=== PATIENT | male | born 1950 | race Hispanic/Latino ===

== ENCOUNTER 2017-01-08 13:46 | Emergency (ER) | payer MEDICARE, OTHER ==
[~2017-01-08] VITALS: Ht 182.9 cm; Wt 85.0 kg
[~2017-01-08 13:46] MED LIST: ALPRAZOLAM PO; AMOXICILLIN500 MG OR; AUGMENTIN500TAB PO; COMPAZINE10 MG OR; GABAPENTIN300 MG PO; LEVEMIR FLEXPEN SC; LEVEMIR1000 UNITS SC; LIPITOR40 M1 PO; LISINOPRIL10 MG PO; LORTAB 5/3255 MG PO; LORTAB 7.5 PO; LYRICA150 MG OR; MELOXICAM7.5 MG PO; METFORMIN500 M1 OR; METHADONE10 MG PO; METHADONE5 M1 OR; NAPROSYN500 MG PO; NEURONTIN100 MG PO; NO; NOVOLOG FLEXPEN SC; NYSTATIN TOP; OXYCODONE5 MG OR; OXYCODONE5 MG PO; PENICILLIN V P500 MG PO; PERCOCET 10/31 COMBO PO; PREPARATIO H RE; PRILOSEC40 MG PO; TORADOL OR; TRAMADOL HCL50 MG OR; ULTRAM50 M1 PO; ULTRAM50 MG OR; UNKNOWN BP PILL; XANAX0.5 MG PO; ZOFRAN ODT8 MG OR
[2017-01-08] MEDS ORDERED: BACTRIM DS1 TAB PO (15:07)
[2017-01-08] MEDS ORDERED: LORTAB 5-325 MG1 TAB PO (15:07)
[2017-01-08 15:11] VITALS: BP 139/84
== END 2017-01-08 15:17 | disposition home or self-care (01) ==
LOC: ED 13:46
PROC: 0H9QXZZ Drainage of Finger Nail, External Approach (ICD-10-PCS; principal; 2017-01-08)
DX: L03.012 Cellulitis of left finger (principal)

== ENCOUNTER 2017-01-09 08:51 | Emergency (ER) | payer MEDICARE, OTHER ==
[~2017-01-09] VITALS: Ht 182.9 cm; Wt 90.0 kg
[~2017-01-09 08:51] MED LIST changes: +BACTRIM DS1 TAB PO; +LORTAB 5-325 MG1 TAB PO
[2017-01-09 09:45] VITALS: BP 148/86
== END 2017-01-09 09:45 | disposition home or self-care (01) ==
LOC: ED 08:51
DX: L02.511 Cutaneous abscess of right hand (principal); M19.90 Unspecified osteoarthritis, unspecified site; C95.90 Leukemia, unspecified not having achieved remission; F10.10 Alcohol abuse, uncomplicated; E11.9 Type 2 diabetes mellitus without complications; Z85.038 Personal history of other malignant neoplasm of large intestine; Z85.05 Personal history of malignant neoplasm of liver

== ENCOUNTER 2017-01-11 08:57 | Emergency (ER) | payer MEDICARE, OTHER ==
[~2017-01-11] VITALS: Ht 182.9 cm; Wt 80.0 kg
[2017-01-11 09:05] VITALS: BP 133/72
== END 2017-01-11 09:13 | disposition home or self-care (01) ==
LOC: ED 08:57
DX: Z48.01 Encounter for change or removal of surgical wound dressing (principal)

== ENCOUNTER 2017-07-18 14:15 | Emergency (ER) | payer MEDICARE, OTHER ==
[~2017-07-18] VITALS: Ht 182.9 cm; Wt 88.0 kg
[2017-07-18] MEDS ORDERED: CIPROFLOXACN750 MG PO (14:41)
[2017-07-18] MEDS ORDERED: TRAMADOL HYDROC50 MG PO (14:41)
[2017-07-18 15:07] VITALS: BP 130/70
== END 2017-07-18 15:17 | disposition home or self-care (01) ==
LOC: ED 14:15
DX: S91.332A Puncture wound without foreign body, left foot, initial encounter (principal); E11.9 Type 2 diabetes mellitus without complications; M19.90 Unspecified osteoarthritis, unspecified site; W22.8XXA Striking against or struck by other objects, initial encounter; Y92.009 Unspecified place in unspecified non-institutional (private) residence as the place of occurrence of the external cause; Z85.6 Personal history of leukemia; Z85.05 Personal history of malignant neoplasm of liver; Z85.118 Personal history of other malignant neoplasm of bronchus and lung; Z79.4 Long term (current) use of insulin

== ENCOUNTER 2017-08-24 08:55 | Emergency (ER) | payer MEDICARE, OTHER ==
[~2017-08-24] VITALS: Ht 182.9 cm; Wt 84.0 kg
[~2017-08-24 08:55] MED LIST changes: +CIPROFLOXACN750 MG PO; +TRAMADOL HYDROC50 MG PO
[2017-08-24 10:48] LABS: HEMATOCRIT 37.8 % (39.0-50.0); HEMOGLOBIN 12.6 g/dl (14.0-18.0); IMMATURE GRANULOCYTES 0.3 % (0.0-1.0); MEAN CORPUSCULAR HGB CONC 33.3 g/L CALC (32.0-36.0); NEUT# 4.31 thou/uL (1.82-7.42); RED BLOOD COUNT 3.82 mill/uL (4.70-6.10); RED CELL DISTRI WIDTH 12.7 % (11.5-15.5)
[2017-08-24] MEDS ORDERED: RANITIDINE 150150 MG PO (10:55)
[2017-08-24] MEDS ORDERED: ZOFRAN4 M1 PO (10:55)
[2017-08-24 11:08] VITALS: BP 140/80
[2017-08-24 11:13] LABS: ALBUMIN 4.4 g/dL (3.2-5.0); ALKALINE PHOSPHATASE 89 u/l (38-126); ANION GAP 17 (6-22 (CALC)); BILIRUBIN, TOTAL 0.6 mg/dL (0.0-1.4); BUN 22 mg/dL (8-23); BUN/CREATININE RATIO 21 (12-20 (CALC)); CARBON DIOXIDE 25 mmol/l (22-30); CHLORIDE 105 mmol/l (95-108); GFR > 60 ML/MIN (>=60 (CALC)); GFR FOR AFR.AMER. > 60 ML/MIN (>=60 (CALC)); GLUCOSE 116 mg/dL (82-115); LIPASE 109 u/l (23-300); POTASSIUM 4.9 mmol/l (3.5-5.1); SGOT/AST 40 u/l (19-48); SGPT/ALT 36 u/l (11-66); SODIUM 142 mmol/l (137-146); TOTAL PROTEIN 7.1 g/dL (6.3-8.2)
== END 2017-08-24 11:10 | disposition home or self-care (01) ==
LOC: ED 08:55
PROVIDERS: Family Medicine
DX: K52.9 Noninfective gastroenteritis and colitis, unspecified (principal); R11.2 Nausea with vomiting, unspecified; R10.84 Generalized abdominal pain; E11.9 Type 2 diabetes mellitus without complications; Z79.4 Long term (current) use of insulin

== ENCOUNTER 2017-10-24 09:48 | Emergency (ER) | payer MEDICARE, OTHER ==
[~2017-10-24] VITALS: Ht 182.9 cm; Wt 80.0 kg
[~2017-10-24 09:48] MED LIST changes: +RANITIDINE 150150 MG PO; +ZOFRAN4 M1 PO
[2017-10-24 10:35] LABS: INFLUENZA A NONE DETECTED (NONE DETECT); INFLUENZA B NONE DETECTED (NONE DETECT)
[2017-10-24] MEDS ORDERED: ZPAK PO (10:39)
[2017-10-24 10:48] VITALS: BP 166/88
== END 2017-10-24 10:48 | disposition home or self-care (01) ==
LOC: ED 09:48
PROVIDERS: Family Medicine
DX: J40 Bronchitis, not specified as acute or chronic (principal); M19.90 Unspecified osteoarthritis, unspecified site; E11.9 Type 2 diabetes mellitus without complications; Z85.038 Personal history of other malignant neoplasm of large intestine; Z85.05 Personal history of malignant neoplasm of liver; Z85.118 Personal history of other malignant neoplasm of bronchus and lung

== ENCOUNTER 2017-12-11 11:10 | Emergency (ER) | payer MEDICARE, OTHER ==
[~2017-12-11] VITALS: Ht 182.9 cm; Wt 84.0 kg
[~2017-12-11 11:10] MED LIST changes: +GABAPENTIN100 MG PO; -GABAPENTIN300 MG PO; +ZPAK PO
[2017-12-11] MEDS ORDERED: IBUPROFEN200 MG PO (11:32)
[2017-12-11] MEDS ORDERED: NAPROXEN DR500 MG PO (12:25)
[2017-12-11 12:34] VITALS: BP 133/90
== END 2017-12-11 12:35 | disposition home or self-care (01) ==
LOC: ED 11:10
DX: S83.411A Sprain of medial collateral ligament of right knee, initial encounter (principal); I10 Essential (primary) hypertension; E11.9 Type 2 diabetes mellitus without complications; M19.90 Unspecified osteoarthritis, unspecified site; W17.2XXA Fall into hole, initial encounter; Y93.H2 Activity, gardening and landscaping; Y92.007 Garden or yard of unspecified non-institutional (private) residence as the place of occurrence of the external cause; Z85.05 Personal history of malignant neoplasm of liver; Z85.038 Personal history of other malignant neoplasm of large intestine; Z85.118 Personal history of other malignant neoplasm of bronchus and lung

== ENCOUNTER 2018-01-07 09:34 | Emergency (ER) | payer MEDICARE, OTHER ==
[~2018-01-07] VITALS: Ht 182.9 cm; Wt 90.0 kg
[~2018-01-07 09:34] MED LIST changes: +IBUPROFEN200 MG PO; +NAPROXEN DR500 MG PO
[2018-01-07] MEDS ORDERED: MEDDOSEPAK PO (10:04)
[2018-01-07] MEDS ORDERED: EC-NAPROSYN500 MG PO (10:04)
[2018-01-07 10:18] VITALS: BP 140/65
== END 2018-01-07 10:18 | disposition home or self-care (01) ==
LOC: ED 09:34
DX: G89.29 Other chronic pain (principal); M25.562 Pain in left knee; I10 Essential (primary) hypertension; E11.9 Type 2 diabetes mellitus without complications; M19.90 Unspecified osteoarthritis, unspecified site

== ENCOUNTER 2018-09-24 11:42 | Emergency (ER) | payer MEDICARE, MEDICAID ==
[~2018-09-24] VITALS: Ht 182.9 cm; Wt 81.8 kg
[~2018-09-24 11:42] MED LIST changes: +EC-NAPROSYN500 MG PO; +MEDDOSEPAK PO
[2018-09-24 12:03] VITALS: BP 147/84
== END 2018-09-24 13:55 | disposition home or self-care (01) ==
LOC: ED 11:42
DX: M25.551 Pain in right hip (principal); I10 Essential (primary) hypertension; E11.9 Type 2 diabetes mellitus without complications; M19.90 Unspecified osteoarthritis, unspecified site; W01.0XXA Fall on same level from slipping, tripping and stumbling without subsequent striking against object, initial encounter

== ENCOUNTER 2019-02-28 15:09 | Emergency (ER) | payer MEDICARE, MEDICAID ==
[~2019-02-28] VITALS: Ht 182.9 cm; Wt 60.0 kg
[2019-02-28] MEDS ORDERED: BACTRIM DS1 TAB PO (15:28)
[2019-02-28] MEDS ORDERED: BENADRYL 50MG C50 MG PO (15:28)
[2019-02-28] MEDS ORDERED: BENADRY2 EX (15:28)
[2019-02-28 15:41] VITALS: BP 138/66
== END 2019-02-28 15:57 | disposition home or self-care (01) ==
LOC: ED 15:09
DX: S20.461A Insect bite (nonvenomous) of right back wall of thorax, initial encounter (principal); S40.861A Insect bite (nonvenomous) of right upper arm, initial encounter; I10 Essential (primary) hypertension; E11.9 Type 2 diabetes mellitus without complications; Z79.4 Long term (current) use of insulin; W57.XXXA Bitten or stung by nonvenomous insect and other nonvenomous arthropods, initial encounter

== ENCOUNTER 2019-06-12 09:07 | Emergency (ER) | payer MEDICARE, MEDICAID ==
[~2019-06-12] VITALS: Ht 182.9 cm; Wt 79.5 kg
[~2019-06-12 09:07] MED LIST changes: +BENADRY2 EX; +BENADRYL 50MG C50 MG PO
[2019-06-12] MEDS ORDERED: TOBREX OPTH5 ML/BTL OS (09:38)
[2019-06-12 10:13] VITALS: BP 128/63
== END 2019-06-12 10:13 | disposition home or self-care (01) ==
LOC: ED 09:07
DX: S05.02XA Injury of conjunctiva and corneal abrasion without foreign body, left eye, initial encounter (principal); I10 Essential (primary) hypertension; E11.9 Type 2 diabetes mellitus without complications; X58.XXXA Exposure to other specified factors, initial encounter; Y93.H9 Activity, other involving exterior property and land maintenance, building and construction; Y92.009 Unspecified place in unspecified non-institutional (private) residence as the place of occurrence of the external cause; Z79.4 Long term (current) use of insulin

== ENCOUNTER 2019-08-15 | Emergency (ER) | payer OTHER, MEDICARE, MEDICAID ==
[~2019-08-15] MED LIST changes: +TOBREX OPTH5 ML/BTL OS
[2019-08-15] MEDS ORDERED: METFORMIN500 MG PO (10:37)
[2019-08-15] MEDS ORDERED: IBUPROFEN600 MG PO (10:37)
== END 2019-08-15 12:56 | disposition home or self-care (01) | DRG 552 ==
DX: S16.1XXA Strain of muscle, fascia and tendon at neck level, initial encounter (principal); M25.551 Pain in right hip; I10 Essential (primary) hypertension; E11.9 Type 2 diabetes mellitus without complications; V53.6XXA Passenger in pick-up truck or van injured in collision with car, pick-up truck or van in traffic accident, initial encounter; Z79.84 Long term (current) use of oral hypoglycemic drugs

== ENCOUNTER 2020-01-16 11:06 | Emergency (ER) | payer MEDICARE, MEDICAID ==
[~2020-01-16] VITALS: Ht 182.9 cm; Wt 70.0 kg
[~2020-01-16 11:06] MED LIST changes: +IBUPROFEN600 MG PO; +METFORMIN500 MG PO
[2020-01-16 12:26] LABS: HEMATOCRIT 32.5 % (39.0-50.0); HEMOGLOBIN 10.7 g/dl (14.0-18.0); IMMATURE GRANULOCYTES 0.5 % (0.0-5.0); MEAN CELL VOLUME 98.5 fL CALC (80.0-100.0); MEAN CORPUSCULAR HGB 32.4 pG CALC (26.0-32.0); MEAN CORPUSCULAR HGB CONC 32.9 g/dL CAL (32.0-36.0); NEUT# 6.46 thou/uL (1.82-7.42); RED BLOOD COUNT 3.3 mill/uL (4.70-6.10); RED CELL DISTRI WIDTH 13.2 % (11.5-15.5)
[2020-01-16 12:40] LABS: ALBUMIN 3.7 g/dL (3.2-5.0); BILIRUBIN, TOTAL 0.4 mg/dL (0.0-1.4); CREATININE 1.6 mg/dL (0.7-1.3); TOTAL PROTEIN 6.8 g/dL (6.3-8.2)
[2020-01-16 12:41] LABS: POTASSIUM 5.2 mmol/l (3.5-5.1)
[2020-01-16] MEDS ORDERED: KEFLEX500 M1 PO (14:47)
[2020-01-16 15:32] VITALS: BP 175/83
== END 2020-01-16 15:42 | disposition home or self-care (01) ==
LOC: ED 11:06
DX: E11.621 Type 2 diabetes mellitus with foot ulcer (principal); L97.529 Non-pressure chronic ulcer of other part of left foot with unspecified severity; L03.032 Cellulitis of left toe; E87.5 Hyperkalemia; E86.0 Dehydration; E11.42 Type 2 diabetes mellitus with diabetic polyneuropathy; I10 Essential (primary) hypertension; Z79.84 Long term (current) use of oral hypoglycemic drugs; R94.31 Abnormal electrocardiogram [ECG] [EKG]

== ENCOUNTER 2020-01-25 14:55 | Inpatient (IN) | payer MEDICARE, MEDICAID ==
[~2020-01-25] VITALS: Ht 182.9 cm; Wt 77.6 kg
[~2020-01-25 14:55] MED LIST changes: +KEFLEX500 M1 PO
--- NOTE | 2020-01-25 15:00 | NUR ---
Pt to room # 8 via W/C for bedside triage
--- NOTE | 2020-01-25 15:35 | NUR ---
IV INTITIATED AND IV ANTIBIOTICS INFUSING PER MAR; PT ADVISED OF CONTINUED WAIT TIME; MONITORING DEVICES IN PLACE; VSS; WILL CONTINUE TO MONTIOR
[2020-01-25 15:42] LABS: HEMATOCRIT 29.7 % (39.0-50.0); HEMOGLOBIN 10.1 g/dl (14.0-18.0); IMMATURE GRANULOCYTES 0.4 % (0.0-5.0); MEAN CELL VOLUME 95.2 fL CALC (80.0-100.0); MEAN CORPUSCULAR HGB 32.4 pG CALC (26.0-32.0); RED BLOOD COUNT 3.12 mill/uL (4.70-6.10); RED CELL DISTRI WIDTH 12.7 % (11.5-15.5)
[2020-01-25 16:28] LABS: BILIRUBIN, TOTAL 0.5 mg/dL (0.0-1.4); CREATININE 2.2 mg/dL (0.7-1.3); POTASSIUM 4.6 mmol/l (3.5-5.1); TOTAL PROTEIN 7.2 g/dL (6.3-8.2)
--- NOTE | 2020-01-25 16:30 | NUR ---
PT RESTING ON STRETCHER; NO S/S OF DISTRESS NOTED; PT ADVISED OF CONTINUED WAIT TIME; MONITORING DEVICES IN PLACE; VSS; CALL LIGHT WITHIN REACH; WILL CONTINUE TO MONITOR
--- NOTE | 2020-01-25 17:30 | NUR ---
PT SITTING UP ON STRETCHER; NO S/S OF DISTRESS NOTED; VSS; CALL LIGHT WITHIN REACH; WILL CONTINUE TO MONITOR
--- NOTE | 2020-01-25 18:07 | NUR ---
PT ADVISED OF POC AND PLAN TO ADMIT; VSS; WILL CONTINUE TO MONITOR
--- NOTE | 2020-01-25 18:30 | NUR ---
Admission Note Report Given to: NORBERT DOLAN Transported by: Wheelchair X Stretcher Transported with: X Nurse Transporter X Patent IV O2 Gaming Pit Boss Location: ICU X MS2
--- NOTE | 2020-01-25 18:31 | NUR ---
PT ARRIVED TO MED SURG ROOM 272 IN STABLE CONDITION VIA STRETCHER ACCOMPAINED BY CARLOS HUMMEL. PT AMBULATED FROM STRETCHER TO BED WITH STEADY GAIT. VITALS OBATINED AT THIS TIME, BP 166/75, HR 91, O2 100% ON ROOM AIR. RESPIRATIONS ARE EVEN AND UNLABORED AT THIS TIME. PT COMPLAINS OF PAIN IN LEFT TOE. MORPHINE ORDERED, AWAITNG FOR VERIFICATION. REPOSITION FOOT ON PILLOW TO HELP WITH PAIN. PT DENIES ANY OTHER PAIN OR DISCOMFORTS AT THIS TIME. ALL SAFTEY PRECAUTIONS IN PLACE, PT ORIENTED TO ROOM AND CALL LIGHT SYSTEM. WILL CONTINUE TO MONITOR
[2020-01-25 18:51] VITALS: BP 166/75
[2020-01-25 19:10] VITALS: BP 159/80
--- NOTE | 2020-01-25 20:50 | NUR ---
ADMISSION AND PHYSICAL ASSESMENT COMPLETE. PLAN OF CARE REVIEWED. CALL PONCE WITHIN REACH, AGREES TO CALL PRN.
--- NOTE | 2020-01-25 22:00 | NUR ---
ORDER RECEIVED FOR PRN TYLENOL AND INCREASE IN MORPHINE DOSE FROM DR. JOEL AFTER REPORTING LOW GRADE TEMP AND REPORTS OF 10/10 PAIN TO L GREAT TOE.
--- NOTE | 2020-01-26 01:00 | NUR ---
PT APPEARS TO BE SLEEPING, APPEARS COMFORTABLE AND IN NO DISTRESS. RESPIRATION REGULAR AND UNLABORED. CALL PONCE REMAINS WITHIN REACH.
[2020-01-26 04:00] VITALS: BP 144/70
--- NOTE | 2020-01-26 04:37 | NUR ---
PT RESTING IN BED, PROVIDED W/ CUP OF COFFEE PER REQUEST. DENIES FURTHER NEEDS. CALL PONCE WITHIN REACH, AGREES TO CALL PRN.
--- NOTE | 2020-01-26 07:40 | NUR ---
DR GUERIN AT [facility] DISCUSSING POC. ORDERS REC FOR ZOSYN 3.375 GM Q6, MRI OF LT FOOT WITHOUT CONTRAST, LAB ORDERS FOR HGA1C, ESR AND CRP. ORDERS READ BACK TO DR GUERIN, VERBALIZED UNDERSTANDING.
--- NOTE | 2020-01-26 08:09 | NUR ---
PT PRESENTS WITH CELLULITIS. VANCOMYCIN ORDERED FOR PHARMACY TO DOSE. PT RECEIVED 1G IN THE ED ON 01/24 @ 1536. INITIATE VANCOMYCIN 750MG IV Q24H STARTING 01/25 @ 1600. DRAW VANCO TROUGH 30 MIN B4 4TH DOSE ON 01/28 @ 1530. GOAL TROUGH IS 10-15 MCG/ML PHARMACY WILL CONTINUE TO FOLLOW.
[2020-01-26 08:42] VITALS: BP 134/56
--- NOTE | 2020-01-26 08:42 | NUR ---
PT SITTING ON THE COUCH. A&O X3. NO DISTRESS NOTED. PT C/O OF SLIGHT PAIN TO LT GREAT TOE. REDNESS AND EDEMA NOTED, SEE CHART FOR PHOTO. NO OTHER NEEDS AT THIS TIME. ASSESSMENT COMPLETED. DISCUSSED POC. CALL LIGHT IN REACH. CONTINUE TO MONITOR.
--- NOTE | 2020-01-26 14:19 | NUR ---
SPOKE WITH PT PER TOMMY OLIVER REQUEST, PT HAD NO QUESTIONS OR CONCERNS REGARDING HIS HOME MEDS. STATES HE USES [facility]. ADVISED PT TO ASK NURSE TO CONTACT US WITH ANY QUESTIONS PERTAINING TO HOME MEDICATIONS. PT WAS APPRECIATIVE.
[2020-01-26 15:04] VITALS: BP 132/78
--- NOTE | 2020-01-26 18:20 | NUR ---
PER PANICCO, PT SHOULD BE OKAY WITHOUT ZOSYN. VANCO TO BE CONTINUED. AWAITING MRI RESULTS. PER PANICCO KEEP PT NPO AT MIDNIGHT IN CASE PT DOES HAVE A PROCEDURE IN THE MORNING.
--- NOTE | 2020-01-26 18:38 | NUR ---
REPORT FROM MAURICIO TOUSSAINT. PT NOTED SITTING UP IN BED WATCHING TV, TALKING ON PHONE. PT ALERT AND ORIENTED. NO APPARENT DISTRESS NOTED. IV SITE APPEARS HEALTHY, FLUSHED AT THIS TIME. PT DENIES ANY PAIN OR DISCOMFORT. DISCUSSED POC. PT VERBALIZED UNDERSTANDING. CALL LIGHT WITHIN REACH. WILL CONTINUE TO MONITOR.
[2020-01-26 19:00] VITALS: BP 136/68
--- NOTE | 2020-01-26 20:51 | NUR ---
PT MEDICATED ORDERED. PT TOLERATED WELL. DIABETIC SNACK PROVIDED. PT DENIES ANY OTHER WANTS OR NEEDS. WILL CONTINUE TO MONITOR.
--- NOTE | 2020-01-26 22:30 | NUR ---
MILK AND CRACKERS PROVIDED UPON REQUEST. NO OTHER WANTS OR NEEDS. CALL LIGHT WITHIN REACH. WILL CONTINUE TO MONITOR.
[2020-01-27] VITALS (10 sets, daily range): BP systolic 122–170; BP diastolic 60–82
--- NOTE | 2020-01-27 00:10 | NUR ---
IV ABT INFUSING WITHOUT DIFFICULTY. NO S/S OF ADVERSE REACTION NOTED. IV SITE APPEARS HEALTHY. WILL CONTINUE TO MONITOR.
--- NOTE | 2020-01-27 04:38 | NUR ---
PT MEDICATED FOR LEFT FOOT PAIN 9-10. PT REMAINS NPO. NO APPARENT DISTRESS NOTED. CALL LIGHT WITHIN REACH. WILL CONTINUE TO MONITOR.
--- NOTE | 2020-01-27 07:06 | NUR ---
PT LAYING IN BED. A&O X3. NO DISTRESS NOTED. PT STATES PAIN IS DOING SLIGHTLY BETTER THIS MORNING. NO OTHER NEEDS AT THIS TIME. REINFORCEMENT OF NPO STATUS NEEDED. ASSESSMENT COMPLETED. DISCUSSED POC. CALL LIGHT IN REACH. CONTINUE TO MONITOR.
--- NOTE | 2020-01-27 07:15 | NUR ---
DR GUERIN AT BEDSIDE DISCUSSING POC
--- NOTE | 2020-01-27 09:17 | NUR ---
OR CONSENT OBTAINED
--- NOTE | 2020-01-27 11:04 | NUR ---
PT TAKEN TO THE OR VIA STRETCHER ACCOMPANIED BY ANTOINETTE
--- NOTE | 2020-01-27 11:06 | NUR ---
PER ANTOINETTE IN THE OR, ACCUCHECK WILL BE DONE DOWNSTAIRS FOR THE CURRENT ACCUCHECK THAT IS DUE
--- NOTE | 2020-01-27 14:48 | NUR ---
PT ARRIVED TO OK VIA STRETCHER
--- NOTE | 2020-01-27 16:01 | NUR ---
PT TOLERATING FOOD AND LIQUIDS WELL. SCD TO RT LEG APPLIED, LT LEG ELEVATED. PT DENIES ANY PAIN AT THIS TIME. CALL LIGHT IN REACH. CONTINUE TO MONITOR.
--- NOTE | 2020-01-27 19:02 | NUR ---
REPORT FROM MAURICIO TOUSSAINT. PT NOTED RESTING IN BED. PT ALERT AND ORIENTED. NO APPARENT DISTRESS NOTED. IV SITE APPEARS HEALTHY, FLUSHED AT THIS TIME. PT C/O PAIN LEFT FOOT, ELEVATED ON PILLOW, DRESSING CDI. SCD TO RIGHT LEG. DISCUSSED POC. PT VERBALIZED UNDERSTANDING. CALL LIGHT WITHIN REACH. WILL CONTINUE TO MONITOR AND MEDICATE FOR PAIN ORDERED.
--- NOTE | 2020-01-27 21:04 | NUR ---
PT MEDICATED FOR PAIN IN LEFT FOOT 01/24. LEFT FOOT ELEVATED ON PILLOWS. SNACK PROVIDED AT THIS TIME. CALL LIGHT WITHIN REACH. WILL CONTINUE TO MONITOR.
[2020-01-28 00:01] VITALS: BP 155/80
--- NOTE | 2020-01-28 00:24 | NUR ---
PT MEDICATED FOR PAIN IN LEFT FOOT 05/26. FOOT ELEVATED ON PILLOWS. DRESSING CDI. NO APPARENT DISTRESS NOTED. CALL LIGHT WITHIN REACH. WILL CONTINUE TO MONITOR.
--- NOTE | 2020-01-28 03:40 | NUR ---
PT RESTING IN BED WITH EYES CLOSED. NO APPARENT DISTRESS NOTED. CALL LIGHT WITHIN REACH. WILL CONTINUE TO MONITOR.
[2020-01-28 04:05] VITALS: BP 128/76
[2020-01-28 04:42] LABS: HEMATOCRIT 28.4 % (39.0-50.0); HEMOGLOBIN 9.4 g/dl (14.0-18.0); MEAN CELL VOLUME 97.3 fL CALC (80.0-100.0); MEAN CORPUSCULAR HGB 32.2 pG CALC (26.0-32.0); MEAN CORPUSCULAR HGB CONC 33.1 g/dL CAL (32.0-36.0); RED BLOOD COUNT 2.92 mill/uL (4.70-6.10); RED CELL DISTRI WIDTH 12.4 % (11.5-15.5)
[2020-01-28 05:00] LABS: ALKALINE PHOSPHATASE 83 u/l (38-126); BILIRUBIN, TOTAL 0.3 mg/dL (0.0-1.4); BUN 17 mg/dL (8-23); CHLORIDE 98 mmol/l (95-108); POTASSIUM 4.8 mmol/l (3.5-5.1); SGOT/AST 19 u/l (19-48); SODIUM 132 mmol/l (137-146)
[2020-01-28 05:10] LABS: ANION GAP 11 (6-22 (CALC)); BUN/CREATININE RATIO 17 (12-20 (CALC)); CARBON DIOXIDE 28 mmol/l (22-30); GFR > 60 ML/MIN (>=60 (CALC)); GFR FOR AFR.AMER. > 60 ML/MIN (>=60 (CALC))
[2020-01-28 05:11] LABS: ALBUMIN 2.9 g/dL (3.2-5.0); TOTAL PROTEIN 5.7 g/dL (6.3-8.2)
[2020-01-28 07:55] VITALS: BP 143/78
--- NOTE | 2020-01-28 07:55 | NUR ---
PT LAYING IN BED. A&O X3. NO DISTRESS NOTED. LT LEG ELEVATED WITH RT SCD IN PLACE. PT REPORTS SOME PAIN RELIEF. DRESSING AND BANDAGE CDI. CAPILLARY REFILL CHECKED, NO ABNORMALITIES NOTED. ASSESSMENT COMPLETED. DISCUSSED POC. CALL LIGHT IN REACH. CONTINUE TO MONITOR.
--- NOTE | 2020-01-28 09:40 | NUR ---
DR GUERIN AT BEDSIDE DISCUSSING POC
--- NOTE | 2020-01-28 10:00 | NUR ---
PER DR GUERIN, PT WILL NEED TO HAVE INFECTIOUS DISEASE CONSULT THURSDAY WITH DR. BUSTAMANTE. NO DRESSING CHANGE ORDERS. REINFORCEMENT NEEDED ON HEEL TOUCH WB.
[2020-01-28 15:01] VITALS: BP 123/71
--- NOTE | 2020-01-28 16:29 | NUR ---
PT LAYING IN BED. NO NEEDS AT THIS TIME. CALL LIGHT IN REACH. CONTINUE TO MONITOR.
[2020-01-28 19:20] VITALS: BP 140/71
[2020-01-28 19:56] VITALS: BP 137/59
--- NOTE | 2020-01-29 03:44 | NUR ---
PT IN BED WITH EYES CLOSED. ABLE TO VERBALIZE NEEDS. MEDICATED FOR PAIN AND EFFECTIVE. PT IS CONTINENT OF B/B AND AMBULATES TO TOILET WITH NO ASSIST NEEDED.
[2020-01-29 04:38] VITALS: BP 118/70
--- NOTE | 2020-01-29 05:48 | NUR ---
PT IN BED WITH EYES OPEN. COMPLAINED OF ILL FEELING STOMACH AND REQUESTED GINGERALE AND CRACKERS. WAS GIVEN AND PT STATES THAT HE FEELS BETTER. MEDICATED FOR PAIN THROUGHOUT THE NIGHT AND EFFECTIVE. AMBULATES TO TOILET WITH NO COMPLICATIONS. NO BM DURING THE NIGHT. CALL LIGHT WITHIN REACH AND BED IN LOWEST POSITION. WILL CONTINE TO OBSERVE
[2020-01-29 07:26] VITALS: BP 127/71
--- NOTE | 2020-01-29 07:26 | NUR ---
PT RESTING IN BED, RETURNED FROM BATHROOM. PT VOICES NO NEEDS OR COMPLAINTS. PT AMBULATES WITH WALKER TO PROVIDE NON WEIGHT BEARING TO L FOOT. DRESSING TO L FOOT CDI, PT C/O PAIN BUT REQUESTING TYLENOL INSTEAD OF PERCOCET. ASSESSMENT COMPLETED,CALL LIGHT IN REACH,CONTINUE TO MONITOR.
--- NOTE | 2020-01-29 11:00 | NUR ---
PT MEDICATED PER MAR, PT C/O PAIN. MEDICATED FOR PAIN. CALL LIGHT IN REACH,CONTINUE TO MONITOR.
[2020-01-29 15:00] VITALS: BP 123/62
--- NOTE | 2020-01-29 16:13 | NUR ---
PT RESTING IN BED, C/O LEG PAIN MEDICATED PER OCT. CALL LIGHT IN REACH,CONTINUE TO MONITOR.
[2020-01-29 19:19] VITALS: BP 155/78
--- NOTE | 2020-01-29 23:32 | NUR ---
PT IN BED WITH EYES CLOSED. NO S/S OF DISTRESS. RESPIRATIONS ARE EVEN AND NON LABORED. TOLERATING IV ABT WELL. SNACK GIVEN. CONTINENT OF B/B. MEDICATIONS GIVEN AND TOLERATED WELL. WILL CONTINUE TO OBSERVE.
[2020-01-30 00:59] VITALS: BP 178/83
--- NOTE | 2020-01-30 01:08 | NUR ---
PT BLOOD PRESSURE [id number]. APRESDOLINE GIVEN ORDERED.
[2020-01-30 04:53] VITALS: BP 100/59
[2020-01-30 05:12] LABS: HEMATOCRIT 30.5 % (39.0-50.0); IMMATURE GRANULOCYTES 0.4 % (0.0-5.0); MEAN CELL VOLUME 97.1 fL CALC (80.0-100.0); MEAN CORPUSCULAR HGB 31.8 pG CALC (26.0-32.0); MEAN CORPUSCULAR HGB CONC 32.8 g/dL CAL (32.0-36.0); NEUT# 5.36 thou/uL (1.82-7.42); RED BLOOD COUNT 3.14 mill/uL (4.70-6.10); RED CELL DISTRI WIDTH 12.1 % (11.5-15.5)
[2020-01-30 05:29] LABS: ALBUMIN 3.3 g/dL (3.2-5.0); ALKALINE PHOSPHATASE 122 u/l (38-126); ANION GAP 11 (6-22 (CALC)); BILIRUBIN, TOTAL 0.3 mg/dL (0.0-1.4); BUN 13 mg/dL (8-23); BUN/CREATININE RATIO 14 (12-20 (CALC)); CARBON DIOXIDE 30 mmol/l (22-30); CHLORIDE 95 mmol/l (95-108); CREATININE 0.9 mg/dL (0.7-1.3); GFR > 60 ML/MIN (>=60 (CALC)); GFR FOR AFR.AMER. > 60 ML/MIN (>=60 (CALC)); POTASSIUM 4.5 mmol/l (3.5-5.1); SGOT/AST 28 u/l (19-48); SODIUM 133 mmol/l (137-146); TOTAL PROTEIN 6.3 g/dL (6.3-8.2)
--- NOTE | 2020-01-30 07:23 | NUR ---
RECEIVED REPOTR FROM CARLOS DUVAL. PT RESTING IN SEMI FOWLERS POSTIION UPON ENTERING ROOM. INTRODUCED SELF TO PT AND DISSCUED POC. RESPIRATIONS ARE EVEN AND UNLABORED WITH NO SIGNS OF DISTRESS. PT DENIES ANY PAIN OR DISCOMFORTS AT THIS TIME. ALL SAFTEY PRECAUTIONS IN PLACE WITH CALL LIGHT IN REACH.WILL CONTINUE TO MONITOR
[2020-01-30 08:02] VITALS: BP 150/78
[2020-01-30 08:12] VITALS: BP 150/78
--- NOTE | 2020-01-30 08:18 | NUR ---
ASSESSMENT AND VITALS COMPLETED AT THIS TIME. BP 150/78, HR 69 O2 97% ON ROOM AIR. RESPIRATIONS ARE EVEN AND UNLABORED .PT IS A/O X3. PT DENIES ANY SOB. HEART RHYTHM IS NORMAL. BOWEL SOUNDS ARE ACTIVE IN ALL QUADRANTS, LAST REPORTED BM WAS 01/29/20. RADIAL AND PEDAL PULSES ARE STRONG WITH NORMAL CAPILLARY REFILL. 1+ EDEMA AND SLIGHT REDNESS IN LLE. DRESSING APPLIED TO LEFT FOOT FROM AMPUTATION OF LEFT GREAT TOE. DRESSING IS CDI. PT COMPLAINS OF 2/10 PAIN IN LEFT FOOT, INFORMED PT THAT PAIN MEDICATION WAS NOT AVAILABLE AT THIS TIME. PT VERBALIZED UNDERSTANDING, LEFT FOOT REPOSITIONED.IV FLUSHED, SITE APPEARS HEALTHY AND PATENT. PT DENIES OF ANY OTHER PAIN OR DISCOMFORTS AT THIS TIME. ALL SAFTEY PRECAUTIONS IN PLACEW ITH CALL LIGHT IN REACH. WILL CONTINUE TO MONITOR.
--- NOTE | 2020-01-30 10:44 | NUR ---
CONSULT WITH OBTAINED AT THIS TIME.
--- NOTE | 2020-01-30 11:39 | NUR ---
AT BEDSIDE DISCUSSING POC.
[2020-01-30] MEDS ORDERED: DOXYCYCL HYC100 MG PO (11:42)
[2020-01-30] MEDS ORDERED: JANUVIA100 MG PO (11:42)
[2020-01-30] MEDS ORDERED: LEVAQUIN750 MG PO ×2 (11:42)
--- NOTE | 2020-01-30 12:51 | NUR ---
PT RESTING IN SEMI FOWLERS POSITION WITH DAUGHTER AT BED SIDE. RESPIRATIONS ARE EVEN AND UNLABORED WITH NO SIGNS OF DISTRESS. DISCHARGE ORDERS IN PLACE AT THIS TIME. PT DENIES ANY PAIN OR DISCOMFORTS AT THIS TIME. ALL SAFETY PRECAUTIONS IN PLACE WITH CALL LIGHT IN REACH. WILL CONTINUE TO MONITOR
--- NOTE | 2020-01-30 14:19 | NUR ---
PT REPORTED A 9/10 PAIN IN LEFT FOOT, PERCOCET ADMINISTERED AT THIS TIME RESPIRATIONS ARE EVEN AND UNLABORED AT THIS TIME. PT DENIES ANY OTHER PAIN OR DISOCMFORTS AT THIS TIME .ALL SAFTEY PRECAUTIONS IN PLACE WITH CALL LIGHT IN REACH.
[2020-01-30] MEDS ORDERED: LORTAB5 PO (14:21)
--- NOTE | 2020-01-30 14:57 | NUR ---
IV REMOVED WITH CATHATER STILL INTACT. PT TOLERATED WELL. PT EDUCATED ON DISCHARGE INSTRUCTIONS AND RX FOR LORTAB PROVIDED.PT INSTRUCTED TO F/U WITH IN 1 WEEK. OFFICE TO CALL PT FOR APPT. PT VERBALIZED UNDERSTANDING.AWAITING FOR PT DEPARTURE AT THIS TIME. DAUGHTER TO TRANSPORT PT HOME.PT GETTING DRESSING. ALL SAFETY PRECAUTIONS REMAIN IN PLACE WITH CALL LIGHT IN REACH. WILL CONTIUE TO MONITOR
--- NOTE | 2020-01-30 15:09 | NUR ---
Discharge instructions given. Patient verbalizes understanding of same. Discharged in stable condition via Wheelchair to Home with family. All belongings sent with pt. PT LEFT VIA WHEELCHAIR IN STABLE CONDITION ACCOMPAINED BY ANKIT NEGRETE LPN AND PT DAUGHTER. ALL DISCHARGE INSTRUCTIONS AND PT BELONGING IN PT POSSESSION WHEN DISCHARGED
== END 2020-01-30 15:09 | DRG 617 ==
LOC: ED 14:55 → ED-I 16:50 → ED 17:02 → ED-I 17:06 → MS2 17:17
PROVIDERS: Nurse Practitioner Family; ADMIT Internal Medicine; ATTEND Internal Medicine
PROC: 0Y6Q0Z0 Detachment at Left 1st Toe, Complete, Open Approach (ICD-10-PCS; principal; 2020-01-27)
PROC: 0HXNXZZ Transfer Left Foot Skin, External Approach (ICD-10-PCS; 2020-01-27)
DX: E11.69 Type 2 diabetes mellitus with other specified complication (principal); M86.172 Other acute osteomyelitis, left ankle and foot; E11.621 Type 2 diabetes mellitus with foot ulcer; L97.529 Non-pressure chronic ulcer of other part of left foot with unspecified severity; L03.032 Cellulitis of left toe; E86.0 Dehydration; I10 Essential (primary) hypertension; B96.4 Proteus (mirabilis) (morganii) as the cause of diseases classified elsewhere; Z85.038 Personal history of other malignant neoplasm of large intestine; Z85.118 Personal history of other malignant neoplasm of bronchus and lung; Z85.05 Personal history of malignant neoplasm of liver; Z85.6 Personal history of leukemia; Z79.84 Long term (current) use of oral hypoglycemic drugs; Z88.0 Allergy status to penicillin; Z11.59 Encounter for screening for other viral diseases
CPT/HCPCS: G0378; J1650; J3370; Q3014

== ENCOUNTER 2020-05-22 10:30 | Emergency (ER) | payer MEDICARE, MEDICAID ==
[~2020-05-22] VITALS: Ht 182.9 cm; Wt 79.0 kg
[~2020-05-22 10:30] MED LIST changes: +DOXYCYCL HYC100 MG PO; +JANUVIA100 MG PO; +LEVAQUIN750 MG PO; +LORTAB5 PO
[2020-05-22] MEDS ORDERED: CLEOCIN300 MG PO (13:22)
[2020-05-22 13:38] VITALS: BP 170/92
== END 2020-05-22 13:40 | disposition home or self-care (01) ==
LOC: ED 10:30
DX: E11.621 Type 2 diabetes mellitus with foot ulcer (principal); L97.529 Non-pressure chronic ulcer of other part of left foot with unspecified severity; Z89.412 Acquired absence of left great toe; Z79.84 Long term (current) use of oral hypoglycemic drugs

== ENCOUNTER 2020-12-10 | Emergency (ER) | payer MEDICARE, MEDICAID ==
[~2020-12-10] MED LIST changes: +CLEOCIN300 MG PO
[2020-12-10] MEDS ORDERED: OMNI-PAC300 MG PO (11:32)
== END 2020-12-10 12:35 | disposition home or self-care (01) ==
DX: L03.116 Cellulitis of left lower limb (principal); S90.822A Blister (nonthermal), left foot, initial encounter; E11.9 Type 2 diabetes mellitus without complications; X58.XXXA Exposure to other specified factors, initial encounter; Z79.84 Long term (current) use of oral hypoglycemic drugs; Z89.412 Acquired absence of left great toe

== ENCOUNTER 2021-07-04 17:53 | Emergency (ER) | payer MEDICARE, MEDICAID ==
[~2021-07-04] VITALS: Ht 182.9 cm; Wt 76.8 kg
[~2021-07-04 17:53] MED LIST changes: +OMNI-PAC300 MG PO
[2021-07-04 19:01] LABS: HEMATOCRIT 35.7 % (39.0-50.0); HEMOGLOBIN 11.5 g/dl (14.0-18.0); IMMATURE GRANULOCYTES 0.1 % (0.0-5.0); MEAN CELL VOLUME 99.7 fL CALC (80.0-100.0); MEAN CORPUSCULAR HGB 32.1 pG CALC (26.0-32.0); MEAN CORPUSCULAR HGB CONC 32.2 g/dL CAL (32.0-36.0); NEUT# 4.1 thou/uL (1.82-7.42); RED BLOOD COUNT 3.58 mill/uL (4.70-6.10); RED CELL DISTRI WIDTH 12.2 % (11.5-15.5)
[2021-07-04 19:14] LABS: ALBUMIN 4.1 g/dL (3.2-5.0); BILIRUBIN, TOTAL 0.4 mg/dL (0.0-1.4); CREATININE 1.6 mg/dL (0.7-1.3); TOTAL PROTEIN 7.2 g/dL (6.3-8.2)
[2021-07-04 19:20] LABS: POTASSIUM 4.9 mmol/l (3.5-5.1)
[2021-07-04 19:25] LABS: URINE BILIRUBIN - DIPSTICK NEGATIVE (NEGATIVE); URINE BLOOD DIPSTICK TRACE-INTACT (NEGATIVE); URINE COLOR YELLOW; URINE GLUCOSE - DIPSTICK >=1000 mg/dL (NEGATIVE); URINE KETONE NEGATIVE (NEGATIVE); URINE LEUK ESTERASE NEGATIVE (NEGATIVE); URINE PROTEIN - DIPSTICK NEGATIVE (NEG-TRACE); URINE SPECIFIC GRAVITY 1.015; URINE UROBILINOGEN - DIPSTICK 0.2 E.U./dL (0.2)
[2021-07-04 19:27] LABS: URINE NITRITE - DIPSTICK NEGATIVE (Negative)
[2021-07-04 19:41] VITALS: BP 161/84
[2021-07-04 19:45] LABS: MYOGLOBIN 205 ng/mL (0 - 121)
== END 2021-07-04 19:50 | disposition home or self-care (01) ==
LOC: ED 17:53
PROVIDERS: Emergency Medicine
DX: E11.65 Type 2 diabetes mellitus with hyperglycemia (principal); I10 Essential (primary) hypertension; Z79.84 Long term (current) use of oral hypoglycemic drugs; E11.40 Type 2 diabetes mellitus with diabetic neuropathy, unspecified

== ENCOUNTER 2023-03-22 00:27 | Emergency (ER) | payer MEDICARE, MEDICAID ==
[~2023-03-22] VITALS: Ht 182.9 cm; Wt 86.0 kg
[2023-03-22] VITALS (17 sets, daily range): BP systolic 107–155; BP diastolic 60–88
[2023-03-22 01:19] LABS: BASO% 1.2 % (0-3); EOS% 11.4 % (0-8); HEMATOCRIT 31.3 % (39.0-50.0); HEMOGLOBIN 10.1 g/dl (14.0-18.0); IMMATURE GRANULOCYTES 0.2 % (0.0-5.0); LYMPH% 33.7 % (15-41); MEAN CELL VOLUME 99.4 fL CALC (80.0-100.0); MEAN CORPUSCULAR HGB 32.1 pG CALC (26.0-32.0); MEAN CORPUSCULAR HGB CONC 32.3 g/dL CAL (32.0-36.0); MONO% 8.3 % (2-13); NEUT# 2.61 thou/uL (1.82-7.42); NEUT% 45.2 % (42-76); RED BLOOD COUNT 3.15 mill/uL (4.70-6.10); RED CELL DISTRI WIDTH 12.6 % (11.5-15.5)
[2023-03-22 01:53] LABS: ALBUMIN 3.7 g/dL (3.2-5.0); BILIRUBIN, TOTAL 0.4 mg/dL (0.2-1.3); CREATININE 1.8 mg/dL (0.7-1.3); POTASSIUM 4.3 mmol/l (3.5-5.1); TOTAL PROTEIN 6.4 g/dL (6.3-8.2)
[2023-03-22] MEDS ORDERED: BACTRIM DS1 TAB PO (03:47)
== END 2023-03-22 08:37 | disposition home or self-care (01) ==
LOC: ED 00:27
PROVIDERS: Emergency Medicine
DX: L03.115 Cellulitis of right lower limb (principal); F10.129 Alcohol abuse with intoxication, unspecified; I10 Essential (primary) hypertension; E11.9 Type 2 diabetes mellitus without complications; Z79.84 Long term (current) use of oral hypoglycemic drugs; Y90.6 Blood alcohol level of 120-199 mg/100 ml
CPT/HCPCS: J1956

== ENCOUNTER 2023-05-18 09:24 | Emergency (ER) | payer MEDICARE, MEDICAID ==
[~2023-05-18] VITALS: Ht 182.9 cm; Wt 75.2 kg
[2023-05-18 09:35] VITALS: BP 159/76
[2023-05-18 10:11] VITALS: BP 179/82
[2023-05-18] MEDS ORDERED: OMNI-PAC300 MG PO (10:27)
[2023-05-18 10:31] VITALS: BP 158/72
[2023-05-18 10:49] VITALS: BP 158/72
== END 2023-05-18 11:07 | disposition home or self-care (01) ==
LOC: ED 09:24
DX: L03.115 Cellulitis of right lower limb (principal); I10 Essential (primary) hypertension; E11.9 Type 2 diabetes mellitus without complications; Z79.84 Long term (current) use of oral hypoglycemic drugs

== ENCOUNTER 2024-02-26 13:16 | Emergency (ER) | payer MEDICARE, MEDICAID ==
[~2024-02-26] VITALS: Ht 195.6 cm; Wt 82.0 kg
[~2024-02-26 13:16] MED LIST changes: +AMOX/K CLAV875 M1 PO; +JARDIANCE25 MG PO; +NAPROXEN500 MG PO; +TRAMADOL HCL50 MG PO
[2024-02-26 13:29] VITALS: BP 158/89
[2024-02-26 13:30] VITALS: BP 162/93
[2024-02-26] MEDS ORDERED: NAPROXEN220 MG PO (13:38)
[2024-02-26] MEDS ORDERED: METHOCARBAMOL500 MG PO (13:38)
[2024-02-26 13:40] VITALS: BP 162/93
== END 2024-02-26 13:46 | disposition home or self-care (01) ==
LOC: ED 13:16
DX: G89.4 Chronic pain syndrome (principal); I10 Essential (primary) hypertension; E11.9 Type 2 diabetes mellitus without complications; Z79.84 Long term (current) use of oral hypoglycemic drugs; Z79.891 Long term (current) use of opiate analgesic